=== PATIENT | female | born 1965 | race Caucasian/White ===

== ENCOUNTER 2017-05-22 14:30 | Outpatient (CLI) | payer MEDICARE ==
[2014-07-17 21:22] VITALS: BP 127/73
[2017-05-22 14:50] LABS: eGFR (African) > 60; eGFR (Non-African) > 60
== END 2017-05-22 14:45 ==
LOC: LABRHC 14:30
PROVIDERS: ATTEND Family Medicine
DX: E11.9 Type 2 diabetes mellitus without complications (principal); I10 Essential (primary) hypertension
CPT/HCPCS: 80053; 80061; 82043; 83036

== ENCOUNTER 2017-06-05 16:02 | Outpatient (CLI) | payer MEDICARE ==
[2014-07-17 21:22] VITALS: BP 127/73
== END 2017-06-05 16:03 ==
LOC: LABRHC 16:02
PROVIDERS: ATTEND Family Medicine
DX: Z01.419 Encounter for gynecological examination (general) (routine) without abnormal findings (principal)
CPT/HCPCS: 88148; G0143

== ENCOUNTER 2017-12-25 09:23 | Outpatient (CLI) | payer MEDICARE ==
[2014-07-17 21:22] VITALS: BP 127/73
[2017-12-25 10:28] LABS: eGFR (African) > 60; eGFR (Non-African) > 60
== END 2017-12-25 09:24 ==
LOC: LAB 09:23
PROVIDERS: ATTEND Family Medicine
DX: E11.9 Type 2 diabetes mellitus without complications (principal); E55.9 Vitamin D deficiency, unspecified
CPT/HCPCS: 80053; 80061; 82043; 82306; 83036

== ENCOUNTER 2018-01-07 08:13 | Outpatient (CLI) | payer MEDICARE ==
[2014-07-17 21:22] VITALS: BP 127/73
== END 2018-01-07 08:14 ==
LOC: RT 08:13
PROVIDERS: ATTEND Family Medicine
DX: R07.9 Chest pain, unspecified (principal)

== ENCOUNTER 2018-01-14 11:12 | Outpatient (CLI) | payer MEDICARE ==
[2014-07-17 21:22] VITALS: BP 127/73
== END 2018-01-14 11:13 ==
LOC: CARD 11:12
PROVIDERS: ATTEND Internal Medicine Cardiovascular Disease
DX: R07.9 Chest pain, unspecified (principal)

== ENCOUNTER 2018-01-29 14:38 | Outpatient (CLI) | payer MEDICARE ==
[2014-07-17 21:22] VITALS: BP 127/73
[2018-01-29 15:18] LABS: eGFR (African) > 60; eGFR (Non-African) > 60
== END 2018-01-29 14:40 ==
LOC: LABRHC 14:38
PROVIDERS: ATTEND Family Medicine
DX: E55.9 Vitamin D deficiency, unspecified (principal); E78.5 Hyperlipidemia, unspecified; E11.9 Type 2 diabetes mellitus without complications
CPT/HCPCS: 80053; 80061; 82306

== ENCOUNTER 2018-03-10 09:07 | Day surgery (SDC) | payer OTHER ==
[2014-07-17 21:22] VITALS: BP 127/73
[2018-03-10] MEDS ORDERED: LACTATED RINGERS 1,000 ML IV.SOLN IV ONE (09:08)
[2018-03-10] MEDS ORDERED: PROPOFOL 500 MG/50 ML VIAL IV ONE (09:08)
[2018-03-10] MEDS ORDERED: SALINE FLUSH 10 ML DISP.SYRIN IVF ONE (09:08)
--- NOTE | 2018-03-10 11:04 | GI Report ---
REFERRING PHYSICIAN: Dr. Max Story PHARMACY INTAKE COORDINATOR: Mello Valencia MD PROCEDURE MEDICATION: Propofol as per anesthesia. INDICATIONS: This 52-year-old woman is referred for a screening colonoscopy. She denies change in bowel habits or blood in the stool. She is a diabetic. She does have hyperlipidemia. She is a cigarette smoker since a teenager. She has never had a previous colonoscopy. She is referred for the above indications. PROCEDURE PERFORMED: Colonoscopy. PROCEDURE: An Olympus video colonoscope was advanced to the rectum. She has a very atonic redundant colon and it took some maneuvering to finally reach the cecum. The appendiceal orifice and ileocecal valve looked normal. On slow withdrawal , the cecum, ascending colon, and transverse colon with no obvious intraluminal lesions noted. The descending colon and sigmoid, again, with redundancy. No obvious intraluminal lesions noted. Retroflexion of the rectum was normal. Patient tolerated the procedure well. FINDINGS: A very atonic redundant colon to the cecum. RECOMMENDATIONS: 1. Would increase fiber in her diet. 2. I also recommend she discontinue tobacco usage. 3. Consider re-looking at her colon in 10 years, sooner if clinically indicated. cc: Dr. Max ASTUDILLO
== END 2018-03-10 09:10 ==
LOC: OPSURG 09:07
PROVIDERS: ATTEND Internal Medicine Gastroenterology
DX: Z12.11 Encounter for screening for malignant neoplasm of colon (principal); F17.210 Nicotine dependence, cigarettes, uncomplicated
CPT/HCPCS: J2704; J7120; G0121; S1016

== ENCOUNTER 2018-04-25 10:55 | Outpatient (CLI) | payer OTHER ==
[2014-07-17 21:22] VITALS: BP 127/73
--- NOTE | 2018-04-25 15:03 | CONSULTATION REPORT ---
REFERRING PHYSICIAN: Dr. Max Story CONSULTING PHYSICIAN: Stalin Pinzon MD Dear Dr. Story: HISTORY OF PRESENT ILLNESS: Thank you for your consultation request regarding Barbara Miranda. This is a 52 -year-old white woman who I first saw on May 28, 2014. She came to see me with a diagnosis of fibromyalgia. At that time, my evaluation concluded that she had generalized osteoarthritis, tobacco use, and COPD. I put her on diclofenac. She had a return visit on July 23, 2014, and noticed some mild improvement. She has since then failed to return. Anyway, she comes here today telling me her fibromyalgia is worse and she is maxed out on all of her medications. She hurts all over. She continues to smoke. She has a chronic nonproductive cough. She has fatigue, muscle spasms, and hand sensitivity. She has excessive worries, anxiety, depression, agitation, nonrestorative sleep , PTSD, and she remains on disability. She does also admit to maybe 30 minutes of morning stiffness but, otherwise, no new joint deformities. PAST MEDICAL HISTORY: 1. Left shoulder pain, recently status post left shoulder injection. 2. Diabetes. 3. Hyperlipidemia. 4. . 5. Carpal tunnel release. PRESENT MEDICATIONS: 1. Trazodone 150 mg at bedtime. 2. Glimepiride 4 mg daily. 3. Atorvastatin 20 mg at bedtime. 4. Lyrica 150 mg twice a day. 5. Savella 100 mg twice a day. 6. Hydroxyzine as needed. 7. Diclofenac 50 mg 3 times a day. 8. Metformin 1000 mg twice a day. She has not been taking Chantix. ALLERGIES: She reports an allergy to Flagyl which causes hives. SOCIAL HISTORY: As above. She never . She does not drink. FAMILY HISTORY: Negative from a rheumatological point of view. REVIEW OF SYSTEMS: Negative for any rashes. She had a recent colonoscopy negative for inflammatory bowel disease. She has a cough but no chest pain. No hemoptysis. No nausea, vomiting, or diarrhea. PHYSICAL EXAMINATION: VITAL SIGNS: Height: 5 feet 5 inches. Weight: 117. T: 96.4, R: 20, heart rate 110, BP: 140/80. GENERAL: She looks older than her stated age. HEENT: Sclerae are anicteric. Conjunctivae are pink. No stomatitis or glossitis. External ears are unremarkable. Scalp has no lesions. No alopecia. No parotid swelling. LUNGS: Diffuse wheezing bilaterally. No E to A changes. HEART: Regular rate and rhythm. ABDOMEN: Soft and nontender. VASCULAR: No edema or cyanosis. PERIPHERAL JOINTS: Changes of osteoarthritis at the DIPs and PIPs. Tenderness but no synovitis at the MCPs, wrists, elbows, shoulders, hips, knees , ankles, and feet. She has a small [place] of rash on left lower thigh. IMPRESSION: 1. Fibromyalgia, on maximum therapy. 2. Smoking with evidence of COPD and sleep disturbance may be a contributing factor, and I have again encouraged her to quit smoking. PLAN: 1. I would physical therapy. 2. Possible neurocognitive consultation. 3. With sudden worsening of her symptoms, I am going to recheck her labs today for an underlying autoimmune disease. 4. We will also check a chest x-ray for concern of a paraneoplastic syndrome. 5. I will give her a call with the results when I return in 4 weeks. I personally have not been impressed with either Chinyere or Rula in the treatment of fibromyalgia. My main approach is physical therapy, conditioning, and optimizing one's health, as well as treatment of any underlying depression or associated symptoms and would recommend the possibility of a psychiatric evaluation or, again, neurocognitive behavioral therapy. Thank you very much for the opportunity to take part in the care of your patient. Best regards, cc: Dr. Max ASTUDILLO
== END 2018-04-25 12:37 ==
LOC: RHEU 10:55
PROVIDERS: ATTEND Internal Medicine
DX: M79.7 Fibromyalgia (principal); Z72.0 Tobacco use
CPT/HCPCS: 99214; G0463

== ENCOUNTER 2018-04-28 08:37 | Outpatient (CLI) | payer OTHER ==
[2014-07-17 21:22] VITALS: BP 127/73
--- NOTE | 2018-04-28 09:15 | Diagnostic Imaging Report ---
LARISA COVARURBIAS [facility] [address] [facility] [address] [place], [place]. [address] Report Submission Date: Apr 28, 2018 9:05:46 AM CDT Patient Study Name: JOLYNN WALSH Date: Apr 28, 2018 8:42:47 AM CDT Modality Type: DX Gender: F Description: CHEST : 65 Institution: [facility] Physician: LARISA COVARRUBIAS PA and lateral chest History: 30+ smoking year history. Cough. PA and lateral chest dated April 28, 2018 demonstrates mild hyperinflation. Pulmonary vascularity is normal. Lungs are clear. Impression: Mild hyperinflation. Otherwise, no active disease. Electronically signed on Apr 28, 2018 9:05:46 AM CDT by: Cathy ASTUDILLO
== END 2018-04-28 08:40 ==
LOC: LAB 08:37
PROVIDERS: ATTEND Internal Medicine
DX: M13.0 Polyarthritis, unspecified (principal); R06.02 Shortness of breath
CPT/HCPCS: 36415; 71046; 85651; 86038; 86140; 86431

== ENCOUNTER 2018-05-21 10:36 | Outpatient (CLI) | payer OTHER ==
[2014-07-17 21:22] VITALS: BP 127/73
== END 2018-05-21 10:38 ==
LOC: LAB 10:36
PROVIDERS: ATTEND Family Medicine
DX: E11.9 Type 2 diabetes mellitus without complications (principal)
CPT/HCPCS: 83036

== ENCOUNTER 2018-09-19 11:50 | Outpatient (CLI) | payer OTHER ==
[2014-07-17 21:22] VITALS: BP 127/73
[2018-09-19 12:55] LABS: eGFR (Non-African) > 60
== END 2018-09-19 11:55 ==
LOC: LAB 11:50
PROVIDERS: ATTEND Family Medicine
DX: E11.9 Type 2 diabetes mellitus without complications (principal)
CPT/HCPCS: 36415; 80053; 83036

== ENCOUNTER 2018-11-20 09:51 | Outpatient (CLI) | payer OTHER ==
[2014-07-17 21:22] VITALS: BP 127/73
--- NOTE | 2018-11-22 04:01 | Diagnostic Imaging Report ---
VINICIO ROSENBERG [facility] [address] [id number] Report Submission Date: Nov 21, 2018 5:04:38 AM GENERAL INTERN Patient Study Name: JOLYNN WALSH Date: Nov 21, 2018 12:00:00 AM GENERAL INTERN Modality Type: DEXA\OT Gender: F Description: DEXA : 65 Institution: [facility] Physician: VINICIO ROSENBERG Bone mineral densitometry examination Clinical history: Patient is a 53-year-old female. Bone mineral densitometry is performed with evaluation of the lumbar spine and bilateral hips. Lowest measured bone mineral density is in the left femoral neck at 0.855 grams/centimeter squared with a young adult T-score of-1.3. This represents osteopenia. Impression: 1. Osteopenia. Electronically signed on Nov 21, 2018 5:04:38 AM GENERAL INTERN by: Terry ASTUDILLO
== END 2018-11-20 10:00 ==
LOC: RAD 09:51
PROVIDERS: ATTEND Family Medicine
DX: M81.0 Age-related osteoporosis without current pathological fracture (principal); M85.89 Other specified disorders of bone density and structure, multiple sites
CPT/HCPCS: 77080

== ENCOUNTER 2018-12-22 14:50 | Outpatient (CLI) | payer OTHER ==
[2014-07-17 21:22] VITALS: BP 127/73
[2018-12-22 21:10] LABS: eGFR (Non-African) > 60
== END 2018-12-22 14:52 ==
LOC: LABRHC 14:50
PROVIDERS: ATTEND Family Medicine
DX: E11.9 Type 2 diabetes mellitus without complications (principal)
CPT/HCPCS: 36415; 80053; 80061; 82043; 83036

== ENCOUNTER 2019-04-23 09:00 | Outpatient (CLI) | payer OTHER ==
[2014-07-17 21:22] VITALS: BP 127/73
[2019-04-23 11:00] LABS: HDL 43 mg/dL (>40); eGFR (Non-African) > 60
--- NOTE | 2019-04-23 12:19 | Diagnostic Imaging Report ---
<p>Your browser does not support iframes.</p> VINICIO ROSENBERG [facility] [address] [facility] [address] [place] [address]. [id number] Report Submission Date: Apr 23, 2019 11:04:44 AM CDT Patient Study Name: JOLYNN WALSH Date: Apr 23, 2019 9:32:39 AM CDT Modality Type: US Gender: F Description: : 65 Institution: [facility] Physician: VINICIO ROSENBERG Exam: Bilateral carotid Doppler study. History: Bruit. Doppler interrogation and color Doppler imaging of the carotid systems bilaterally are submitted. No previous studies are available for comparison. On the right side no intimal thickening or plaque is identified. The internal carotid artery peak systolic flow velocity measurements is 116 centimeters/second. The internal carotid artery common carotid artery ratio is 1.8. Doppler waveforms demonstrates some mild turbulence in flow at the bulb. Elevated velocity in the right external carotid artery is suggestive of a greater than 50% stenosis. Flow is antegrade in the vertebral artery. On the left side no intimal thickening or plaque is identified. The internal carotid artery peak systolic velocity measurements is 83 centimeters/second. The internal carotid artery common carotid artery ratio is 1.1. Doppler waveforms are normal configuration. Color Doppler imaging reveals no turbinates of flow. Flow is antegrade in the vertebral artery. Impression: Stenosis of greater than 50% suspected in the right external carotid artery. No hemodynamically significant stenosis in the internal carotid arteries is identified. Electronically signed on Apr 23, 2019 11:04:44 AM CDT by: Nawaf ASTUDILLO
[2019-04-24 07:49] LABS: A1C 8.1 % (<5.7)
== END 2019-04-23 09:02 ==
LOC: RAD 09:00
PROVIDERS: ATTEND Family Medicine
DX: E11.9 Type 2 diabetes mellitus without complications (principal)
CPT/HCPCS: 36415; 80053; 80061; 83036; 93880

== ENCOUNTER 2019-07-27 11:24 | Outpatient (CLI) | payer OTHER ==
[2014-07-17 21:22] VITALS: BP 127/73
[2019-07-27 12:04] LABS: eGFR (Non-African) > 60
[2019-07-27 12:21] LABS: A1C 6.3 % (<5.7)
== END 2019-07-27 11:29 ==
LOC: LAB 11:24
PROVIDERS: ATTEND Family Medicine
DX: M79.602 Pain in left arm (principal)
CPT/HCPCS: 36415; 80053; 83036